=== PATIENT | female | born 1990 | race Caucasian/White ===

== ENCOUNTER 2017-11-24 13:28 | Outpatient (CLI) | payer OTHER | END 2017-11-25 08:43 | disposition home or self-care (01) | LOC: OBS/DEL 13:28 | DX: O99.810 Abnormal glucose complicating pregnancy (principal); E16.1 Other hypoglycemia; Z34.02 Encounter for supervision of normal first pregnancy, second trimester ==

== ENCOUNTER 2018-03-04 12:12 | Inpatient (IN) | payer OTHER ==
[~2018-03-04] VITALS: Ht 165.1 cm; Wt 2.3 kg
[2018-03-24] MEDS ORDERED: OBSTETRIX DHA1 EACH PO (08:12)
[2018-03-27] MEDS ORDERED: OBSTETRIX DHA1 EACH PO (08:05)
[2018-03-27] MEDS ORDERED: GAS RELIEF125 MG PO (08:05)
[2018-03-27] MEDS ORDERED: IBUPROFEN400 MG PO (08:05)
== END 2018-03-27 13:48 | disposition home or self-care (01) | DRG 787 ==
LOC: LDR 03-23 09:22 → OB/GYN 03-23 09:22
PROVIDERS: Obstetrics & Gynecology
PROC: 3E0P7VZ Introduction of Hormone into Female Reproductive, Via Natural or Artificial Opening (ICD-10-PCS; 2018-03-23)
PROC: 4A1HXCZ Monitoring of Products of Conception, Cardiac Rate, External Approach (ICD-10-PCS; 2018-03-23)
PROC: 10D00Z1 Extraction of Products of Conception, Low, Open Approach (ICD-10-PCS; principal; 2018-03-24 09:15)
DX: O76 Abnormality in fetal heart rate and rhythm complicating labor and delivery (principal); O41.03X0 Oligohydramnios, third trimester, not applicable or unspecified; Z3A.39 39 weeks gestation of pregnancy; Z37.0 Single live birth

== ENCOUNTER 2019-03-31 13:28 | Emergency (ER) | payer OTHER ==
[~2019-03-31] VITALS: Ht 162.6 cm; Wt 77.1 kg
[~2019-03-31 13:28] MED LIST: GAS RELIEF125 MG PO; IBUPROFEN400 MG PO; OBSTETRIX DHA1 EACH PO
== END 2019-03-31 20:22 | disposition home or self-care (01) ==
LOC: ER 13:28
DX: K52.89 Other specified noninfective gastroenteritis and colitis (principal)

== ENCOUNTER 2024-09-13 10:57 | Emergency (ER) | payer OTHER ==
[~2024-09-13] VITALS: Ht 165.1 cm; Wt 74.8 kg
[2024-09-13] MEDS ORDERED: PRENATABS RX T1 EACH PO (13:59)
[2024-09-13 18:43] LABS: PH,URINE 5.5 (5.0-8.0); URINE APPEARANCE Clear; URINE BACTERIA 6846.7 uL (0.0-1933); URINE BILIRRUBIN Negative (NEGATIVE); URINE BLOOD Small; URINE COLOR Dark Yellow; URINE GLUCOSE Negative (NEGATIVE); URINE LEUKOCYTE Negative; URINE NITRATE Negative; URINE PROTEIN Negative (NEGATIVE); URINE RBC 46.6 uL (0.0-20.8); URINE WBC 75.3 uL (0.0-23.2)
[2024-09-13 19:06] LABS: URINE CAST 1.03 uL (0.0-1.40); URINE KETONE 40 (NEGATIVE)
[2024-09-13 19:41] LABS: BASO % 0.4 % (0.1-1.2); EOS % 2.8 % (0.7-7.0); HEMATOCRIT 32.5 % (34.1-44.9); HEMOGLOBIN 10.5 g/dL (11.2-15.7); LYMPH % 33.9 % (19.3-53.1); MEAN CORPUSCULAR HEMOGLOBIN 26.3 pg (25.6-32.2); MONO % 10.2 % (4.7-12.5); NEUT # 2.61 (1.56-6.13); NEUT % 52.5 % (34.0-71.1); PLATELET COUNT 312 K/uL (163-369)
[2024-09-13 19:42] LABS: EOS # 0.14 (0.04-0.54); LYMPH # 1.69 (1.18-3.74); MONO # 0.51 (0.24-0.82)
== END 2024-09-13 20:12 | disposition home or self-care (01) ==
LOC: ER 10:57
PROVIDERS: General Practice
DX: O20.8 Other hemorrhage in early pregnancy (principal); Z3A.01 Less than 8 weeks gestation of pregnancy

== ENCOUNTER 2025-04-19 13:26 | Inpatient (IN) | payer OTHER ==
[~2025-04-19] VITALS: Ht 167.6 cm; Wt 3.2 kg
[~2025-04-19 13:26] MED LIST changes: +PRENATABS RX T1 EACH PO
[2025-04-19 13:58] VITALS: BP 111/74
[2025-04-19 14:46] LABS: BASO % 0.2 % (0.1-1.2); EOS # 0.08 (0.04-0.54); EOS % 0.9 % (0.7-7.0); LYMPH # 1.52 (1.18-3.74); LYMPH % 18.0 % (19.3-53.1); MEAN PLATELET VOLUME 9.80 fl (9.4-12.4); MONO # 0.75 (0.24-0.82); MONO % 8.9 % (4.7-12.5); NEUT # 5.98 (1.56-6.13); NEUT % 70.8 % (34.0-71.1); RED CELL DISTRIBUTION WIDTH 12.6 % (11.6-14.4)
[2025-04-19] MEDS ORDERED: CHILDREN'S ASPI81 MG PO (14:46)
[2025-04-19 14:49] LABS: URINE APPEARANCE Clear; URINE BILIRRUBIN Negative (NEGATIVE); URINE BLOOD Negative; URINE COLOR Dark Yellow; URINE GLUCOSE Negative (NEGATIVE); URINE KETONE Trace (NEGATIVE); URINE LEUKOCYTE Trace; URINE NITRATE Negative; URINE PROTEIN Trace (NEGATIVE); URINE UROBILINOGEN 1.0 E.U./dl
[2025-04-19 14:50] LABS: URINE BACTERIA 1376.1 uL (0.0-1933); URINE EPITHELIAL CELLS 15.4 uL (0.0-38.8); URINE RBC 2.5 uL (0.0-20.8); URINE WBC 16.2 uL (0.0-23.2)
[2025-04-19 15:00] LABS: URINE CAST 0.00 uL (0.0-1.40)
[2025-04-19 15:05] LABS: COVID-19 AG NEGATIVE (NEGATIVE)
[2025-04-19 15:08] LABS: INR < 0.93
[2025-04-19] MEDS ORDERED: RINGERS SOLUTION,LACTATED 1,000 ML IV SCH (15:15)
[2025-04-19] MEDS ORDERED: CEFAZOLIN SODIUM 1,000 MG VIAL IV SCH (15:15)
[2025-04-19 15:27] LABS: ALT/SGPT 32.0 U/L (12-78); AST/SGOT 26.0 U/L (15-37); BILIRUBIN TOTAL 0.45 mg/dL (0.3-1.2); BUN CREA RATIO 12.0 (7.0-25.0); CREATININE SERUM 0.49 mg/dL (0.55-1.02); GFR 142.9; GLOBULINA 3.8 G/DL (2.4-3.5); GLUCOSE FASTING 73.0 mg/dL (65-100); OSMOLALITY SERUM 274.0 MOSM/KG (275-295)
[2025-04-19 15:28] VITALS: BP 131/84
[2025-04-19] MEDS ORDERED: ERYTHROMYCIN BASE OPHT 1GM EACH TUBE OP ONE (16:22)
[2025-04-19] MEDS ORDERED: OXYTOCIN 10 UNITS/ML VIAL ONE ×2 (16:22→19:48)
[2025-04-19] MEDS ORDERED: PROMETHAZINE HCL 50 MG/ML AMPUL IM SCH (17:54)
[2025-04-19] MEDS ORDERED: MORPHINE SULFATE 4 MG/ML CARTRIDGE IV PRN (18:00)
[2025-04-19] MEDS ORDERED: OXYTOCIN 1,000 ML IV SCH (18:00)
[2025-04-19] MEDS ORDERED: KETOROLAC TROMETHAMINE 30 MG VIAL ONE (18:51)
[2025-04-19 20:25] VITALS: BP 126/72
[2025-04-19] MEDS ORDERED: KETOROLAC TROMETHAMINE 30 MG VIAL IV NR (21:00)
[2025-04-20] VITALS: BP 114/71
[2025-04-20 01:44] LABS: BASO % 0.2 % (0.1-1.2); EOS # 0.05 (0.04-0.54); EOS % 0.4 % (0.7-7.0); LYMPH # 2.04 (1.18-3.74); LYMPH % 16.6 % (19.3-53.1); MEAN PLATELET VOLUME 9.70 fl (9.4-12.4); MONO # 1.02 (0.24-0.82); MONO % 8.3 % (4.7-12.5); NEUT # 9.07 (1.56-6.13); NEUT % 73.8 % (34.0-71.1); RED CELL DISTRIBUTION WIDTH 12.5 % (11.6-14.4)
[2025-04-20] MEDS ORDERED: DOCUSATE SODIUM 100MG CAP PO SCH (09:00)
[2025-04-20] MEDS ORDERED: PNV,CALCIUM 72/IRON/FOLIC ACID 1 TAB TABLET PO SCH (09:00)
[2025-04-20] MEDS ORDERED: IRON FUM,PS/FOLIC ACID/VITC/B3 1 CAP CAPSULE PO SCH (09:00)
[2025-04-20] MEDS ORDERED: SIMETHICONE 125 MG CAPSULE PO SCH (09:00)
[2025-04-20 09:17] VITALS: BP 109/65; O2SAT 98
[2025-04-21 00:25] VITALS: BP 111/78
[2025-04-21 08:53] VITALS: BP 112/73
[2025-04-21] MEDS ORDERED: IBUPROFEN400 MG PO (17:02)
[2025-04-21] MEDS ORDERED: COLACE100 MG PO (17:02)
[2025-04-21] MEDS ORDERED: INTEGRA F CAPS1 EACH PO (17:02)
[2025-04-21] MEDS ORDERED: SIMETHICONE125 M1 PO (17:03)
[2025-04-21 17:12] VITALS: BP 113/79
== END 2025-04-21 17:15 | disposition home or self-care (01) | DRG 788 ==
LOC: OB/GYN 13:26 → LDR 13:26 → O/R 16:40 → OB/GYN 18:11
PROVIDERS: ADMIT Obstetrics & Gynecology; ATTEND Obstetrics & Gynecology
PROC: 4A1HXCZ Monitoring of Products of Conception, Cardiac Rate, External Approach (ICD-10-PCS; 2025-04-19)
PROC: 10D00Z1 Extraction of Products of Conception, Low, Open Approach (ICD-10-PCS; principal; 2025-04-19 17:15)
DX: O41.03X0 Oligohydramnios, third trimester, not applicable or unspecified (principal); O34.211 Maternal care for low transverse scar from previous cesarean delivery; Z3A.37 37 weeks gestation of pregnancy; Z37.0 Single live birth